=== PATIENT | female | born 1985 | race Caucasian/White ===

== ENCOUNTER 2017-09-18 06:48 | Day surgery (SDC) | payer MEDICAID ==
[2017-09-18] MEDS ORDERED: cefOXitin 1 GM Vial ONE (07:13)
[2017-09-18] MEDS: Lactated Ringers 1,000 ML IV SCH (07:42)
--- NOTE | 2017-09-18 08:54 | PREOP ---
ADMISSION DATE: 09/18/2017 CHIEF COMPLAINT: Right lower quadrant abdominal pain. HISTORY OF PRESENT ILLNESS: This is a 32-year-old white female who presented to the emergency room in [place] earlier this morning. The patient apparently developed some periumbilical abdominal pain on Thursday, a little bit better on , however, last night, it got much worse and is now located in the right lower quadrant. This woke her up and while she denies any nausea or vomiting, she notes that she is having a little bit of fever and chills. Subsequent workup at [facility] demonstrated white count of 11.6. CT scan did demonstrate evidence suggestive of acute appendicitis with a large appendix and some regional ileitis. SOCIAL HISTORY: The patient is , has one child. The patient has no smoking history and no alcohol history. FAMILY HISTORY: Significant for asthma and ovarian cancer. PAST SURGICAL HISTORY: Significant for section as well as extraction of erupted tooth. PAST MEDICAL HISTORY: She has a history of enlarged thyroid with 2 complex cysts on her left and a history of chickenpox. ALLERGIES: She has an allergy to sulfa. CURRENT MEDICATIONS: Include: 1. Trazodone 50 mg daily. 2. Hydroquinone cream 2% to apply to hyperpigmented areas daily. 3. Melatonin capsule 10 mg per day. REVIEW OF SYSTEMS: CONSTITUTIONAL: Positive for some slight decreased appetite and chills. No fever. HEENT: Grossly within normal limits. RESPIRATORY: Negative for wheezing, cough, shortness of breath. Chest pain: Negative for any chest pain. GI: Positive for the abdominal pain. : Negative for dysuria, frequency, or hematuria. MUSCULOSKELETAL: Essentially unremarkable. NEUROLOGIC: Essentially unremarkable. PHYSICAL EXAMINATION: GENERAL: This is a well-developed, well-nourished white female, appearing in no acute distress. VITAL SIGNS: Temperature was 36.6 degrees Celsius, pulse rate 88, respiratory rate is 16, blood pressure 141/71, 98% saturated on room air. HEENT: Reveals it to be normocephalic and atraumatic with no obvious defects. LUNGS: Clear to auscultation. HEART: Regular rate and rhythm. ABDOMEN: Demonstrates some pain in the right lower quadrant. Decreased abdominal sounds. LABORATORY DATA: Laboratory exam from [facility] demonstrates a white count of 11.6 with 8.8 neutrophils. Urinalysis and urine test were both negative. CT scan reveals appendicitis with 60 mm appendix and secondary ileitis. ASSESSMENT: Acute appendicitis. PLAN: Laparoscopic appendectomy. Procedure and risks were explained to the patient to include bleeding, infection, removal of a normal appendix, conversion to an open procedure, as well as intestinal resection. The patient expresses understanding and she asked us to proceed. /[id number] /ARMON
[2017-09-18] MEDS ORDERED: cefOXitin 1 GM Vial IVPUSH ONE (10:15)
[2017-09-18] MEDS ORDERED: Succinylcholine 200 MG/10 ML MDV IV ONE (10:30)
[2017-09-18] MEDS ORDERED: Midazolam 1 MG/ML 2 ML SDV IV ONE (10:30)
[2017-09-18] MEDS ORDERED: Ondansetron 4 MG/2 ML SDV IVPUSH ONE (10:30)
[2017-09-18] MEDS ORDERED: fentaNYL 100 MCG/2 ML SDV IV ONE (10:30)
[2017-09-18] MEDS ORDERED: Propofol 200 MG/20 ML SDV IV ONE (10:30)
[2017-09-18] MEDS ORDERED: cefOXitin 1 GM Vial IV ONE (10:30)
[2017-09-18] MEDS ORDERED: Lactated Ringers 1,000 ML IV ONE (10:30)
[2017-09-18] MEDS ORDERED: Ketorolac 30 MG/ML SDV IVPUSH ONE (10:30)
[2017-09-18] MEDS ORDERED: Glycopyrrolate 0.2 MG/ML 2 ML SDV IV ONE (10:30)
[2017-09-18] MEDS ORDERED: Rocuronium 100 MG/10 ML MDV IV ONE (10:30)
[2017-09-18] MEDS ORDERED: Neostigmine Methylsulfate 10 MG/10 ML MDV IVPUSH ONE (10:30)
[2017-09-18] MEDS ORDERED: Bupivacaine 0.5% 30 ML SDV ONE (10:57)
[2017-09-18] MEDS ORDERED: Lidocaine 1% with EPINEPHrine 1:100,000 20 ML MDV ONE (10:57)
[2017-09-18] MEDS ORDERED: Ondansetron 4 MG/2 ML SDV IVPUSH PRN (11:07)
[2017-09-18] MEDS ORDERED: cefOXitin 1 GM in Premix Bag 1 BAG IV SCH (11:15)
--- NOTE | 2017-09-18 11:15 | PCM.OPNOTE ---
- General Post-Op/Procedure Note Date of Surgery/Procedure: 09/18/17 Operative Procedure(s): lap appendectomy Findings: appendicitis Pre Op Diagnosis: acute appendicitis Post-Op Diagnosis: Same Anesthesia Technique: General ET Tube, Local (8 ml 1 % lido with epi/0.5% buvipicaine) Primary Surgeon: William Daniel Anesthesia Provider: Joaquina Sharma Pathology: appendix EBL in mLs: 2 Complications: None Condition: Good Free Text/Narrative:: see dictation
[2017-09-18] MEDS ORDERED: Morphine 4 MG/ML Syringe IVPUSH PRN (11:23)
[2017-09-18] MEDS: cefOXitin 1 GM Vial IVPUSH SCH ×3 (16:23→21:30)
--- NOTE | 2017-09-18 17:12 | OR ---
DATE OF OPERATION: 09/18/2017 SURGEON: William Daniel MD PROCEDURE PERFORMED: Laparoscopic appendectomy. PREOPERATIVE DIAGNOSIS: Acute appendicitis. POSTOPERATIVE DIAGNOSIS: Acute appendicitis. INDICATIONS FOR PROCEDURE: This is a 32-year-old white female who presented to the ED earlier today with complaints of some abdominal pain. Subsequent workup demonstrated acute appendicitis and she was transferred here for a lap appendectomy. DESCRIPTION OF OPERATION: After an excellent general anesthetic was administered, the patient was prepped and draped in usual sterile manner. A 1:1 mixture of 1% lidocaine with epinephrine and 0.5% bupivacaine was introduced to infiltrate our trocar sites. A total of 8 mL were used. Her initial injection site was just below the umbilicus and after injecting, a vertical midline incision was made. Blunt dissection was carried out exposing the midline fascia and two stay sutures of 0 Vicryl were placed on either side of the midline fascia, which was then elevated and incised. The abdominal cavity was entered. A 10.5-mm Christine trocar was inserted into the patient's abdomen and the patient's abdomen was insufflated to 15 mmHg using carbon dioxide. Under direct visualization, two 5 mm ports were placed, one in the right lower quadrant and one in the midline epigastrium below our umbilical port. A suppurative appendix was easily identified, adhesed to omentum and small intestine, was gently dissected away. A rent was then made in the mesoappendix and this was transected with a 3.5 mm Endo-LEATHA load. The appendix had a rather broad base and two more loads were used to transect the appendix. The appendix was then transferred into a specimen bag and delivered out through the umbilical port. The area was irrigated and after assuring excellent hemostasis, the trocars were removed under direct visualization. The midline periumbilical incision was closed with a [id number] 0 Vicryl and two Vicryl's were tied to each other. Yann were used to close the skin. Needle, sponge, and instrument counts were reported as correct. The patient was taken to recovery room in good condition. /[id number] /MODL
[2017-09-18] MEDS: Ketorolac 30 MG/ML SDV IVPUSH PRN (20:45)
[2017-09-19] MEDS: Lactated Ringers 1,000 ML IV SCH (01:28)
[2017-09-19] MEDS: cefOXitin 1 GM Vial IVPUSH SCH ×2 (04:10→09:57)
[2017-09-19] MEDS: Ketorolac 30 MG/ML SDV IVPUSH PRN (08:02)
--- NOTE | 2017-09-19 09:09 | PCM.SURGPN ---
- General Info Date of Service: 09/19/17 POD#: 1 Functional Status: Reports: Pain Controlled, Tolerating Diet, Ambulating, Urinating - Review of Systems Pulmonary: Reports: No Symptoms Cardiovascular: Reports: No Symptoms Gastrointestinal: Reports: Abdominal Pain - Patient Data Vitals - Most Recent: Last Vital Signs Temp 36.8 C 09/19/17 04:10 Pulse 64 09/19/17 04:10 Resp 18 09/19/17 04:10 BP 117/73 09/19/17 04:10 Pulse Ox 96 09/19/17 04:10 Weight - Most Recent: 77.111 kg I&O - Last 24 Hours: Intake & Output 09/18/17 09/19/17 09/19/17 22:59 06:59 14:59 Intake Total 1342 1151 Output Total 200 200 Balance 1142 951 Lab Results Last 24 Hrs: Laboratory Results - last 24 hr 09/19/17 Range/Units 06:30 WBC 11.0 (4.5-12.0) X10-3/uL RBC 3.98 (3.23-5.20) x10(6)uL Hgb 11.5 (11.5-15.5) g/dL Hct 33.9 (30.0-51.3) % MCV 85.2 (80-96) fL MCH 28.9 (27.7-33.6) pg MCHC 33.9 (32.2-35.4) g/dL RDW 12.4 (11.5-15.5) % Plt Count 187 (125-369) X10(3)uL MPV 8.6 (7.4-10.4) fL Neut % (Auto) 82.7 H (46-82) % Lymph % (Auto) 12.6 L (13-37) % [place] % (Auto) 4.3 (4-12) % Eos % (Auto) 0 L (1.0-5.0) % Baso % (Auto) 0 (0-2) % Neut # (Auto) 9.1 H (1.6-8.3) # Lymph # (Auto) 1.4 (0.6-5.0) # [place] # (Auto) 0.5 (0.0-1.3) # Eos # (Auto) 0.0 (0.0-0.8) # Baso # (Auto) 0.0 (0.0-0.2) # Med Orders - Current: Current Medications Cefoxitin Sodium (Mefoxin) 1 gm IVPUSH Q6H [facility] Last Admin: 09/19/17 04:10 Dose: 1 gm Lactated Ringer's (Ringers, Lactated) 1,000 mls @ 125 mls/hr IV ASDIRECTED [facility] Last Admin: 09/19/17 01:28 Dose: 125 mls/hr Ketorolac Tromethamine (Toradol) 30 mg IVPUSH Q8H PRN PRN Reason: Pain Stop: 09/23/17 11:09 Last Admin: 09/19/17 08:02 Dose: 30 mg Morphine Sulfate (Morphine) 3 mg IVPUSH Q4H PRN PRN Reason: Pain (severe 7-10) Ondansetron HCl (Zofran) 4 mg IVPUSH Q6H PRN PRN Reason: Nausea/Vomiting Discontinued Medications Bupivacaine HCl (Marcaine 0.5%) 10 ml .XX .STK-MED ONE Stop: 09/18/17 10:58 Last Admin: 09/18/17 10:57 Dose: 10 ml Cefoxitin Sodium (Mefoxin) Confirm Administered Dose 1 gm .ROUTE .STK-MED ONE Stop: 09/18/17 07:14 Last Admin: 09/18/17 11:49 Dose: Not Given Cefoxitin Sodium (Mefoxin) 1 gm IVPUSH ONETIME ONE Stop: 09/18/17 10:16 Last Admin: 09/18/17 10:25 Dose: 1 gm Lidocaine/Epinephrine (Xylocaine 1% With Epinephrine 1:100,000) 10 ml .XX .STK- MED ONE Stop: 09/18/17 10:58 Last Admin: 09/18/17 10:57 Dose: 10 ml - Exam Wound/Incisions: Dressing Dry and Intact General: Alert, Oriented, Cooperative, No Acute Distress Lungs: Clear to Auscultation, Normal Respiratory Effort Cardiovascular: Regular Rate, Regular Rhythm GI/Abdominal Exam: Normal Bowel Sounds, Soft, Non-Tender - Problem List & Annotations (1) Acute appendicitis SNOMED Code(s): 64396800 Code(s): K35.80 - UNSPECIFIED ACUTE APPENDICITIS Status: Resolved Current Visit: Yes Qualifiers: Acute appendicitis type: with localized peritonitis Qualified Code(s): K35.3 - Acute appendicitis with localized peritonitis - Problem List Review Problem List Initiated/Reviewed/Updated: Yes - My Orders Last 24 Hours: Active Orders 24 hr Category Date Time Status Patient Status [ADT] Routine ADT 09/18/17 11:07 Active Ambulate [RC] .TID Care 09/18/17 11:07 Active Notify Provider Vital Signs [RC] .PRN Care 09/18/17 11:08 Active Oxygen Therapy [RC] PRN Care 09/18/17 11:07 Active RT Incentive Spirometry [RC] Q2HWA Care 09/18/17 11:07 Active Vital Signs [RC] Q4HR Care 09/18/17 11:07 Active Clear Liquid Diet [DIET] Diet 09/18/17 Dinner Ordered Regular Diet [DIET] Diet 09/19/17 Breakfast Ordered Ketorolac [Toradol] Med 09/18/17 11:09 Active 30 mg IVPUSH Q8H PRN Morphine Med 09/18/17 11:23 Active 3 mg IVPUSH Q4H PRN Ondansetron [Zofran] Med 09/18/17 11:07 Active 4 mg IVPUSH Q6H PRN cefOXitin [Mefoxin] Med 09/18/17 16:00 Active 1 gm IVPUSH Q6H Medication Orders Cefoxitin Sodium (Mefoxin) 1 gm IVPUSH Q6H [facility] Last Admin: 09/19/17 04:10 Dose: 1 gm Admin: 09/18/17 21:30 Dose: 1 gm Admin: 09/18/17 16:23 Dose: 1 gm Lactated Ringer's (Ringers, Lactated) 1,000 mls @ 125 mls/hr IV ASDIRECTED [facility] Last Admin: 09/19/17 01:28 Dose: 125 mls/hr Infusion: 09/18/17 15:42 Dose: 125 mls/hr Admin: 09/18/17 07:42 Dose: 125 mls/hr Ketorolac Tromethamine (Toradol) 30 mg IVPUSH Q8H PRN PRN Reason: Pain Stop: 09/23/17 11:09 Last Admin: 09/19/17 08:02 Dose: 30 mg Admin: 09/18/17 20:45 Dose: 30 mg Morphine Sulfate (Morphine) 3 mg IVPUSH Q4H PRN PRN Reason: Pain (severe 7-10) Ondansetron HCl (Zofran) 4 mg IVPUSH Q6H PRN PRN Reason: Nausea/Vomiting - Assessment Assessment (Free Text/Narrative):: ready for discharge - Plan Plan (Free Text/Narrative):: ready for discharge
== END 2017-09-19 11:05 | disposition home or self-care (01) ==
LOC: FB.SDS 06:48 → FB.MS 12:15 → FB.SDS 09-19 11:05
PROVIDERS: ATTEND Surgery
DX: K35.80 Unspecified acute appendicitis (principal); E04.9 Nontoxic goiter, unspecified; Z88.2 Allergy status to sulfonamides; Z79.899 Other long term (current) drug therapy; Z98.890 Other specified postprocedural states
CPT/HCPCS: 36415; 44970; 85025; 88304; J0330; J0694; J1885; J2250; J2405; J2704; J2710; J3010; J7120; J3490